=== PATIENT | female | born 1985 | race Caucasian/White ===

== ENCOUNTER 2018-10-10 13:57 | Emergency (ER) | payer OTHER ==
[2018-10-10 14:14] LABS: BILIRUBIN,URINE NEGATIVE (NEGATIVE); GLUCOSE, URINE (UA) NEGATIVE (NEGATIVE); KETONES,URINE (UA) 40 mg/dL (NEGATIVE); LEUKOCYTE ESTERASE, URINE NEGATIVE (NEGATIVE); NITRITE,URINE NEGATIVE (NEGATIVE); OCCULT BLOOD,URINE TRACE-LYSE (NEGATIVE); PROTEIN,URINE NEGATIVE (NEGATIVE); UROBILINOGEN,URINE 0.2 (NORMAL) E.U./dL (NORMAL)
[2018-10-10] MEDS ORDERED: diphenhydrAMINE INJ 50 MG/ML VIAL IVP STA (14:15)
[2018-10-10] MEDS ORDERED: PROCHLORPERAZINE 10 MG/2 ML VIAL IVP STA (14:15)
[2018-10-10] MEDS ORDERED: SODIUM CHLORIDE 0.9% 1,000 ML IV ONE (14:15)
[2018-10-10] MEDS ORDERED: KETOROLAC 30 MG/ML VIAL IVP STA (14:16)
[2018-10-10] MEDS ORDERED: DEXAMETHASONE 10 MG/ML VIAL IVP STA (14:16)
[2018-10-10 14:17] LABS: CLARITY,URINE HAZY (CLEAR); HCG UR QUAL NEGATIVE
--- NOTE | 2018-10-10 14:18 | ED Physician Documentation ---
PD HPI HEADACHE - Stated complaint Stated Complaint: MIGRAINE - Chief complaint Chief Complaint: Neuro - History obtained from History obtained from: Patient - History of Present Illness Timing - onset: How many days ago (3) Timing - onset during: Rest Timing - duration: Days (3) Timing - details: Gradual onset, Still present Location: Front Quality: Throbbing Associated symptoms: Nausea, Vomiting. No: Fever, Stiff neck, Weakness, Numbness, Syncope, Seizure, Eye pain, Vision changes Improved by: Rest, Dark room, Quiet Worsened by: Light, Noise, Moving Contributing factors: No: Anticoagulated, Possible carbon monoxide Similar symptoms before: Diagnosis (migraine) Recently seen: Not recently seen - Additional information Additional information: 33-year-old female with a previous history of migraine headache has developed a headache 3 days ago after seeing some flashing lights in the periphery of her vision. She states that she has not had a headache like this for about 2 years. She has been unable to get the headache to go away despite staying in her room and having her care for the children. Review of Systems Constitutional: denies: Fever Eyes: denies: Decreased vision Ears: denies: Ear pain Nose: denies: Rhinorrhea / runny nose, Congestion Throat: denies: Sore throat Cardiac: denies: Chest pain / pressure Respiratory: reports: Cough. denies: Dyspnea GI: reports: Nausea, Vomiting. denies: Abdominal Pain : denies: Dysuria, Frequency Skin: denies: Rash Musculoskeletal: denies: Neck pain, Back pain, Extremity pain Neurologic: reports: Headache. 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 : None HEENT: None Psych: Depression, Eating disorder Musculoskeletal: None Derm: None - Past Surgical History Past Surgical History: Yes General: EGD - Present Medications Home Medications: Ambulatory Orders Medication Instructions Recorded Confirmed Albuterol Sulfate [Albuterol 8.5 gm IH 10/10/18 Sulfate Hfa] - Allergies Allergies/Adverse Reactions: Allergies Allergy/AdvReac Type Severity Reaction Status Date / Time amoxicillin trihydrate * AdvReac Unknown Verified 10/10/18 14:02 [From Augmentin] potassium clavulanate * AdvReac Unknown Verified 10/10/18 14:02 [From Augmentin] Sulfa (Sulfonamide AdvReac Unknown Verified 10/10/18 14:02 Antibiotics) - Social History Does the pt smoke?: No Smoking Status: Never smoker Does the pt drink ETOH?: Yes Does the pt have substance abuse?: No - Immunizations Immunizations are current?: Yes - POLST Patient has POLST: No PD ED PE NORMAL - Vitals Vital signs reviewed: Yes - General General: Alert and oriented X 3, Well developed/nourished, Other (appears to be in pain with assistant public defender tone and flat affect. 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, No motor deficit, No sensory deficit, Normal speech Eye Opening: Spontaneous Motor: Obeys Commands Verbal: Oriented GCS Score: 15 - Psych Psych: Normal mood, Normal affect Results - Vitals Vitals: Vital Signs - 24 hr 10/10/18 10/10/18 14:00 14:37 Temperature 36.5 C Heart Rate 85 Respiratory 16 18 Rate Blood Pressure 142/81 H O2 Saturation 100 Oxygen O2 Source Room air - Labs Labs: Laboratory Tests 10/10/18 14:05 Urine Color YELLOW Urine Clarity HAZY Urine pH 5.0 Ur Specific [place] >=1.030 H Urine Protein NEGATIVE Urine Glucose (UA) NEGATIVE Urine Ketones 40 H Urine Occult Blood TRACE-LYSE Urine Nitrite NEGATIVE Urine Bilirubin NEGATIVE Urine Urobilinogen 0.2 (NORMAL) Ur Leukocyte Esterase NEGATIVE Urine RBC 0-5 Urine WBC 0-3 Ur Squamous Epith Cells MOD Squamous H Urine Bacteria Few Ur Microscopic Review INDICATED Urine Culture Comments NOT INDICATED Urine HCG, Qual NEGATIVE PD MEDICAL DECISION MAKING - ED course Complexity details: reviewed old records, considered differential, d/w patient ED course: 33-year-old female with a migraine headache with aura has had a headache for 3 days. She is administered a cocktail consisting of dexamethasone, Compazine, Benadryl, Toradol and saline. Departure - Departure Disposition: 01 Home, Self Care Clinical Impression: Migraine Qualifiers: Migraine type: with aura Status migrainosus presence: without status migrainosus Intractability: not intractable Qualified Code(s): G43.109 - Migraine with aura, not intractable, without status migrainosus Condition: Stable Instructions: ED Headache Migraine Follow-Up: ALICE COFFEY [Primary Care Provider] -
[2018-10-10 14:22] LABS: BACTERIA,URINE Few /HPF (None Seen); RBC,URINE 0-5 /HPF (0-5); SQUAMOUS EPITHELIAL CELL,UR MOD Squamous (<= Few)
[2018-10-10 15:43] VITALS: BP 122/78
== END 2018-10-10 15:42 | disposition home or self-care (01) ==
LOC: ED 13:57
DX: G43.109 Migraine with aura, not intractable, without status migrainosus (principal)
CPT/HCPCS: 81001; 81025; 96361; 96374; 99283; J1200; 81003; 87086

== ENCOUNTER 2019-06-11 10:49 | Outpatient (CLI) | payer OTHER ==
--- NOTE | 2019-06-11 12:15 | SLEEP CARE CONSULTATION ---
Information from patient questionnaire entered by Evonne Rodriguez. I have reviewed and concur with the information entered by Evonne Rodriguez. This document represents the service I personally performed and the decisions made by me, Riki Gonzalez MD, [facility]. History of Present Illness Reason for Visit: New patient Chief Complaint: reports: Insomnia, Other (possible sleep apnea) Usual bedtime: 1185-2218 Time it takes to fall asleep: a while Observed to quit breathing while asleep: Yes Sleeps alone due to snoring: No Number of times waking at night: 1-2 Reasons for waking at night: reports: Snoring, Bathroom Toss, Turn, or Twitch while sleeping: Yes Recalls having dreams: Yes (sometimes) Usually gets out of bed at: 0730 Feels refreshed in the morning: No Morning headache: Yes Sleepy or fatigued during the day: Yes Ever fallen asleep while driving: No Takes day naps: Yes Prior sleep studies: No Additional HPI information: I had the pleasure of seeing Ms. Padron today regarding the possibility of her having a sleep disorder. As you know, she is a 33 year old lady who complains of loud snore and excessive daytime sleepiness. Her mother was recently put on a CPAP. The patient tells me that she normally goes to bed around 9 pm - midnight, and it takes her a while to fall asleep. She has been told that she snores loudly and irregularly at night. She has also been observed to stop breathing in her sleep. Her spouse can still sleep in the same bed. She can recall waking up on the average of 1 - 2 times during the night. Most of the time she wakes up because of coughing. She has never awakened because of her own snoring, choking, and having to gasp for air. There is a lot of tossing and turning in her sleep. She has somniloquy (sleep talking) but not somnambulism (sleep walking). Generally she can recall having dreams. In the morning she usually gets up out of the bed around 7:30 a.m. not feeling refreshed nor rested. She usually has a morning headache that lasts less than an hour. During the day she complains of feeling sleepy and fatigued. Her score on [place] Sleepiness Scale is 7 out of 24. She has never fallen asleep while driving nor has had any accident due to sleepiness. She usually takes naps during the day. Upon falling asleep during the day she denies having vivid dreams. She has never had sleep paralysis, experienced cataplexy or symptoms of restless leg syndrome. She denies having impaired concentration during the day. Subjective Initial [place] Sleepiness Scale score: 7 Past Medical History Past Medical History: reports: Asthma, Depression (off meds) Social History The patient's occupation is not employed. Patient is and lives in [place]. Have you smoked in the past 12 months: No Alcohol use: Yes Alcohol amount and frequency: 1 per month Caffeine use: Yes Caffeine amount and frequency: every day, at least 1 Family History Family history of sleep disordered breathing: Yes Family Hx Sleep Apnea: Mother: Snoring, Sleep apnea - Treated Allergies and Home Medications Drug allergies reviewed: Yes Home medication list reviewed: Yes Allergy and home medication list: Medications: zyrtec, Wellbutrin, , Proair Review of Systems Cardiovascular: denies: high blood pressure, palpitations, chest pain, irregular heart rate or pulse, leg or foot swelling, have to sleep sitting up, other Respiratory: reports: shortness of breath, wheeze Gastrointestinal: reports: heartburn, nausea Urinary: denies: incontinence, frequency, urgency, impotence, other Neurological: denies: headaches, seizure, head trauma, disorientation, speech dysfunction, gait or balance problems, fainting or unconsciousness, other Psychiatric: reports: anxiety, depression Ear/Nose/Throat: reports: nasal congestion Endocrine: denies: thyroid disease, history of goiter, sluggishness, too hot or cold, excessive thirst, increased appetite, increased urination, unexplained weakness, other Musculoskeletal: denies: joint pain, neck pain, back pain, joint swelling, muscle pain or cramping, mobility problems, other Immunologic: reports: allergies to food or environment Physical Exam Vital signs obtained and entered by: Dr. Gonzalez Blood Pressure: 129/86 Heart Rate: 85 O2 Saturation: 98 Height: 5 ft 6 in Weight: 216 lb Body Mass Index: 34.8 BMI Classification: Obesity Class 1 Neck circumference: 15 Mood/affect: normal HEENT: No craniofacial malformation Nostrils: patent to airflow Turbinates: normal Septum: midline Mouth and throat: narrow oropharynx Soft palate: long Hard palate: normal Uvula: normal Uvula visualization: 50% Mallampati Class II Tongue: normal in size Tonsils: small Chin and jaw: normal size and position Neck: normal w/o lymphadenopathy or thyromegaly Heart: regular rate and rhythm Lungs: wheeze Abdomen: soft, non-tender Extremities: no edema or clubbing Neurologic: intact, no focal deficits Impression and Plan IMPRESSION: 1. Obstructive Sleep Apnea-Hypopnea Syndrome, as suggested by history of loud and irregular snoring, observed cessation of breath while asleep, frequent awakenings during the night, unrefreshed sleep, and daytime hypersomnolence. Narrow oropharynx and obesity are common predisposing factors for obstructive sleep apnea-hypopnea syndrome. Pathophysiology of sleep-disordered breathing was discussed. I recommend proceeding to polysomnography to confirm the diagnosis and to assess severity. If she has significant sleep disordered breathing, a manual CPAP titration study will also be performed to find the optimal treatment pressure. I informed the patient of what the sleep studies involve and after some discussion, she agreed to proceed. Plan: 1. Schedule polysomnography + manual CPAP titration study and return in 1 to 2 weeks after the study to discuss result and initiate therapy. 2. Avoid long distance driving or when feeling sleepy. 3. Avoid alcohol, sedative and muscle relaxant around bedtime. 4. Attempt to lose weight. I spent 100% of this 20 minute visit face to face with the patient with greater than 50% of this was spent time counseling the patient and coordination of care.
[2019-06-11 12:16] VITALS: BP 129/86
== END 2019-06-11 10:50 | disposition home or self-care (01) ==
LOC: SC 10:49
PROVIDERS: ATTEND Internal Medicine Pulmonary Disease
DX: R06.83 Snoring (principal); R06.81 Apnea, not elsewhere classified; G47.8 Other sleep disorders; G47.10 Hypersomnia, unspecified; E66.9 Obesity, unspecified; Z68.34 Body mass index [BMI] 34.0-34.9, adult
CPT/HCPCS: 99203; 99212

== ENCOUNTER 2019-09-07 16:41 | Emergency (ER) | payer OTHER ==
[2019-09-07 17:14] LABS: BILIRUBIN,URINE NEGATIVE (NEGATIVE); GLUCOSE, URINE (UA) NEGATIVE (NEGATIVE); KETONES,URINE (UA) NEGATIVE (NEGATIVE); LEUKOCYTE ESTERASE, URINE NEGATIVE (NEGATIVE); NITRITE,URINE NEGATIVE (NEGATIVE); OCCULT BLOOD,URINE NEGATIVE (NEGATIVE); PH,URINE 5.5 PH (5.0-7.5); PROTEIN,URINE NEGATIVE (NEGATIVE); UROBILINOGEN,URINE 0.2 (NORMAL) E.U./dL (NORMAL)
[2019-09-07 17:19] LABS: CLARITY,URINE CLEAR (CLEAR)
[2019-09-07 17:27] LABS: BASOPHILS % (AUTO) 0.5 %; EOSINOPHILS # (AUTO) 0.3 10^3/uL (0.0-0.7); EOSINOPHILS % (AUTO) 4.4 %; HGB - HEMOGLOBIN 11.3 g/dL (12.0-16.0); LYMPHOCYTES # (AUTO) 1.5 10^3/uL (1.5-3.5); LYMPHOCYTES % (AUTO) 23.1 %; MEAN CORPUSCULAR HEMOGLOBIN 26.8 pg (27.0-31.0); MEAN CORPUSCULAR HGB CONC 32.6 g/dL (32.0-36.0); MEAN CORPUSCULAR VOLUME 82.2 fL (81.0-99.0); MEAN PLATELET VOLUME 11.5 fL (7.9-10.8); MONOCYTES # (AUTO) 0.3 10^3/uL (0.0-1.0); MONOCYTES % (AUTO) 4.3 %; NEUTROPHILS # (AUTO) 4.3 10^3/uL (1.5-6.6); NEUTROPHILS % (AUTO) 67.4 %; PLT - PLATELET COUNT 200 10^3/uL (130-450); RED BLOOD COUNT 4.22 10^6/uL (4.20-5.40); RED CELL DISTRIBUTION WIDTH 14.6 % (12.0-15.0); WHITE BLOOD COUNT 6.3 x10^3/uL (4.8-10.8)
[2019-09-07 17:40] LABS: ALBUMIN 3.3 g/dL (3.2-5.5); ALBUMIN/GLOBULIN RATIO 0.9 (1.0-2.2); BILIRUBIN,TOTAL 0.4 mg/dL (0.2-1.0); CALCIUM 8.9 mg/dL (8.5-10.3); CREATININE 0.6 mg/dL (0.4-1.0); TOTAL PROTEIN 6.8 g/dL (6.7-8.2)
--- NOTE | 2019-09-07 17:54 | ED Physician Documentation ---
PD HPI FEMALE - Stated complaint Stated Complaint: SPOTTING/VAGINAL PX - Chief complaint Chief Complaint: Abd Pain - History obtained from History obtained from: Patient, Family - History of Present Illness Timing - onset: Yesterday Timing - duration: Days (2) Timing - details: Gradual onset Pain level max: 2 Pain level max: 1 Associated symptoms: Pelvic pain, Vaginal pain, Vaginal bleeding (spotting for 2 days). 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 History: G (5), P (2) Recently seen: Emergency Dept ([facility] 6 weeks ago and dx with a perigestational bleed.) Review of Systems Constitutional: denies: Fever, Chills Ears: denies: Ear pain Nose: denies: Rhinorrhea / runny nose, Congestion Throat: denies: Sore throat Respiratory: denies: Cough, Wheezing GI: denies: Abdominal Pain, Vomiting, Diarrhea : denies: Dysuria Skin: denies: Rash Musculoskeletal: denies: Neck pain, Back pain Neurologic: denies: Headache PD PAST MEDICAL HISTORY - Past Medical History Past Medical History: Yes Cardiovascular: None Respiratory: None Neuro: None Endocrine/Autoimmune: None GI: GERD 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 : None HEENT: None Psych: Depression, Eating disorder Musculoskeletal: None Derm: None - Past Surgical History Past Surgical History: Yes General: EGD - Present Medications Home Medications: Ambulatory Orders Medication Instructions Recorded Confirmed Albuterol Sulfate [Albuterol 8.5 gm IH 10/10/18 Sulfate Hfa] Chlorhexidine Gluconate [Peridex] 10 ml MM TID #118 ml 10/13/18 Clindamycin HCl [Clindamycin 300MG 300 mg PO Q6H #28 capsule 10/13/18 CAP] Naproxen 500 mg PO BID #20 tablet 10/13/18 Oxycodone HCl/Acetaminophen 1 each PO Q4H PRN #20 tablet 10/13/18 [Percocet 7.5-325 mg Tablet] - Allergies Allergies/Adverse Reactions: Allergies Allergy/AdvReac Type Severity Reaction Status Date / Time amoxicillin trihydrate * AdvReac Unknown Verified 09/07/19 16:45 [From Augmentin] potassium clavulanate * AdvReac Unknown Verified 09/07/19 16:45 [From Augmentin] Sulfa (Sulfonamide AdvReac Unknown Verified 09/07/19 16:45 Antibiotics) - Social History Does the pt smoke?: No Smoking Status: Never smoker Does the pt drink ETOH?: Yes Does the pt have substance abuse?: No - Immunizations Immunizations are current?: Yes - POLST Patient has POLST: No PD ED PE NORMAL - Vitals Vital signs reviewed: Yes - General General: Alert and oriented X 3, No acute distress, Well developed/nourished - HEENT HEENT: Moist mucous membranes - Neck Neck: Supple, no meningeal sign - Cardiac Cardiac: RRR, Strong equal pulses - Respiratory Respiratory: No respiratory distress, Clear bilaterally - Abdomen Abdomen: Soft, Non tender, Non distended - Female Female : Pt declined - Back Back: No CVA TTP, No spinal TTP - Derm Derm: Warm and dry - Extremities Extremities: No edema - Neuro Neuro: Alert and oriented X 3 - Psych Psych: Normal mood, Normal affect Results - Vitals Vitals: Vital Signs - 24 hr 09/07/19 09/07/19 16:45 19:53 Temperature 36.9 C 36.8 C Heart Rate 96 75 Respiratory 18 18 Rate Blood Pressure 125/66 120/83 H O2 Saturation 100 99 Oxygen O2 Source Room air - Labs Labs: Laboratory Tests 09/07/19 09/07/19 09/07/19 17:00 17:15 17:20 WBC 6.3 RBC 4.22 Hgb 11.3 L Hct 34.7 L MCV 82.2 MCH 26.8 L MCHC 32.6 RDW 14.6 Plt Count 200 MPV 11.5 H Neut # (Auto) 4.3 Lymph # (Auto) 1.5 [place] # (Auto) 0.3 Eos # (Auto) 0.3 Baso # (Auto) 0.0 Absolute Nucleated RBC 0.00 Nucleated RBC % 0.0 Sodium Potassium Chloride Carbon Dioxide Anion Gap BUN Creatinine Estimated GFR (MDRD) Glucose Calcium Total Bilirubin AST ALT Alkaline Phosphatase Total Protein Albumin Globulin Albumin/Globulin Ratio Lipase HCG, Quant Urine Color YELLOW Urine Clarity CLEAR Urine pH 5.5 Ur Specific [place] >=1.030 H Urine Protein NEGATIVE Urine Glucose (UA) NEGATIVE Urine Ketones NEGATIVE Urine Occult Blood NEGATIVE Urine Nitrite NEGATIVE Urine Bilirubin NEGATIVE Urine Urobilinogen 0.2 (NORMAL) Ur Leukocyte Esterase NEGATIVE Ur Microscopic Review NOT INDICATED Urine Culture Comments NOT INDICATED Blood Type O POSITIVE 09/07/19 09/07/19 17:20 17:20 WBC RBC Hgb Hct MCV MCH MCHC RDW Plt Count MPV Neut # (Auto) Lymph # (Auto) [place] # (Auto) Eos # (Auto) Baso # (Auto) Absolute Nucleated RBC Nucleated RBC % Sodium 137 Potassium 3.4 L Chloride 104 Carbon Dioxide 26 Anion Gap 7.0 BUN 13 Creatinine 0.6 Estimated GFR (MDRD) 114 Glucose 95 Calcium 8.9 Total Bilirubin 0.4 AST 14 ALT 11 Alkaline Phosphatase 48 Total Protein 6.8 Albumin 3.3 Globulin 3.5 Albumin/Globulin Ratio 0.9 L Lipase 26 HCG, Quant 40212.00 Urine Color Urine Clarity Urine pH Ur Specific [place] Urine Protein Urine Glucose (UA) Urine Ketones Urine Occult Blood Urine Nitrite Urine Bilirubin Urine Urobilinogen Ur Leukocyte Esterase Ur Microscopic Review Urine Culture Comments Blood Type - Rads (name of study) OB US Radiology: Prelim report reviewed, EMP read contemporaneously, See rad report (1. García live intrauterine with gestational age 15 weeks 2 days based on established DENISHA. 2. Normal amniotic fluid volume. Low lying posterior placenta without placenta previa. ) PD MEDICAL DECISION MAKING - ED course Complexity details: reviewed results, re-evaluated patient, considered differential, d/w patient, d/w family ED course: 34-year-old female, 16 weeks with vaginal spotting. No acute findings on laboratory testing or ultrasound. We will have her follow-up with her doctor for further care. Patient counseled regarding signs and symptoms for which I believe and urgent re-evaluation would be necessary. Patient with good unde rstanding of and agreement to plan and is comfortable going home at this time This document was made in part using voice recognition software. While efforts are made to proofread this document, sound alike and grammatical errors may occur. Departure - Departure Disposition: 01 Home, Self Care Clinical Impression: Vaginal bleeding during Condition: Good Instructions: ED Miscarriage Poss, ED Preg Established Normal Sxs Follow-Up: your,doctor in 1 week [Other] Comments: Return if you worsen. Follow up with your doctor in 2-3 days for recheck. Your blood work and ultrasound do not show any acute abnormalities tonight. IMPRESSION: 1. García live intrauterine with gestational age 15 weeks 2 days based on established DENISHA. 2. Normal amniotic fluid volume. Low lying posterior placenta without placenta previa. Discharge Date/Time: 09/07/19 20:29
[2019-09-07 19:54] VITALS: BP 120/83
--- NOTE | 2019-09-07 20:01 | Ultrasound Report ---
Reason: 16 weeks preg, vag bleed Procedure Date: 09/07/2019 Accession Number: [id number] / [id number] Procedure: US - OB 14+ Weeks CPT Code: Final Report FULL RESULT: EXAM: LIMITED OBSTETRICAL ULTRASOUND EXAM DATE: 09/07/2019 07:25 PM. CLINICAL HISTORY: 16 weeks preg, vag bleed. COMPARISON: None. TECHNIQUE: Real-time sonographic evaluation of the fetus performed by the copy worker. Multiple sales representative uniforms static images were saved for review. DATING: Established EGA 15 weeks 2 days with DENISHA 02/27/2020. GENERAL EVALUATION García . Cardiac activity: 155 bpm. movement: Visualized. Presentation: Breech Placenta: Posterior position. No previa. Placenta is low lying located 1.9 cm from the internal loss. No focal placental abnormality visualized. Amniotic fluid: Normal. CHENCHO 15.3 cm. MVP 4.6 cm. MATERNAL STRUCTURES Cervix appears closed and measures 6.2 cm in length. IMPRESSION: 1. García live intrauterine with gestational age 15 weeks 2 days based on established DENISHA. 2. Normal and manic fluid volume. Low lying posterior placenta without placenta previa. RADIA
== END 2019-09-07 20:29 | disposition home or self-care (01) ==
LOC: ED 16:41
DX: O20.9 Hemorrhage in early pregnancy, unspecified (principal); O44.42 Low lying placenta NOS or without hemorrhage, second trimester; Z3A.15 15 weeks gestation of pregnancy
CPT/HCPCS: 36415; 76805; 80053; 81001; 81003; 83690; 84702; 85025; 86900; 86901; 87086; 99284

== ENCOUNTER 2020-03-07 13:41 | Emergency (ER) | payer OTHER ==
[2020-03-07 14:01] VITALS: BP 128/76
[2020-03-07] MEDS ORDERED: cephALEXin 250 MG CAPSULE PO STA (14:13)
--- NOTE | 2020-03-07 14:16 | ED Physician Documentation ---
History of Present Illness - Stated complaint Stated Complaint: FACE SWELLING - Chief complaint Chief Complaint: Heent - History obtained from History obtained from: Patient - History of Present Illness Timing: How many days ago (3) Pain level max: 7 Pain level now: 6 - Additonal information Additional information: 34-year-old female presents the emergency department the right-sided dental pain. She states that it began hurting worse over the past few days and worsened again today. Has a history of multiple dental abscesses in the past. With multiple dental extractions. No fevers. She is breast-feeding. She is allergic to amoxicillin, but states her allergy is diarrhea and she thinks she had a rash. No difficulty breathing. Worse with eating and drinking. Nothing makes it better. Review of Systems Ten Systems: 10 systems reviewed and negative Constitutional: denies: Fever, Chills GI: denies: Nausea, Vomiting, Diarrhea Skin: denies: Rash Musculoskeletal: denies: Neck pain, Back pain Neurologic: denies: Headache PD PAST MEDICAL HISTORY - Past Medical History Past Medical History: Yes Cardiovascular: None Respiratory: None Neuro: None Endocrine/Autoimmune: None GI: GERD MRI TECH: None : None HEENT: None Psych: Depression, Eating disorder Musculoskeletal: None Derm: None - Past Surgical History Past Surgical History: Yes General: EGD - Present Medications Home Medications: Ambulatory Orders Medication Instructions Recorded Confirmed Albuterol Sulfate [Albuterol 8.5 gm IH Q4HR PRN 10/10/18 03/07/20 Sulfate Hfa] Cephalexin [Keflex] 500 mg PO Q6H #40 capsule 03/07/20 Docusate Sodium 250Mg Capsule 1 cap ORAL BID PRN 03/07/20 03/07/20 [Colace 250Mg Capsule] Ibuprofen 800 mg PO Q8HR PRN 03/07/20 03/07/20 Omeprazole 20 mg PO DAILY 03/07/20 03/07/20 No122/Iron/Folic Acid 1 each PO DAILY 03/07/20 03/07/20 [ Multi Tablet] - Allergies Allergies/Adverse Reactions: Allergies Allergy/AdvReac Type Severity Reaction Status Date / Time amoxicillin trihydrate * AdvReac Unknown Verified 03/07/20 13:57 [From Augmentin] potassium clavulanate * AdvReac Unknown Verified 03/07/20 13:57 [From Augmentin] Sulfa (Sulfonamide AdvReac Unknown Verified 03/07/20 13:57 Antibiotics) - Social History Does the pt smoke?: No Smoking Status: Never smoker Does the pt drink ETOH?: Yes Does the pt have substance abuse?: No - Immunizations Immunizations are current?: Yes - POLST Patient has POLST: No PD ED PE NORMAL - Vitals Vital signs reviewed: Yes - General General: Alert and oriented X 3, No acute distress, Well developed/nourished - HEENT HEENT: Moist mucous membranes, Other (Poor dentition throughout, there is tenderness over the right lower molar. No gingival swelling. No drainage. Normal phonation. No trismus. No swelling under the tongue) - Neck Neck: Supple, no meningeal sign - Cardiac Cardiac: RRR, Strong equal pulses - Respiratory Respiratory: No respiratory distress, Clear bilaterally - Derm Derm: Warm and dry - Neuro Neuro: Alert and oriented X 3 - Psych Psych: Normal mood, Normal affect Results - Vitals Vitals: Vital Signs - 24 hr 03/07/20 13:58 Temperature 36.6 C Heart Rate 62 Respiratory 18 Rate Blood Pressure 128/76 O2 Saturation 98 Oxygen O2 Source Room air PD MEDICAL DECISION MAKING - ED course Complexity details: considered differential, d/w patient ED course: Patient with dental caries and dental pain. No abscess. No Ludewig's angina. We will place her on Keflex given her allergy to amoxicillin as diarrhea and a rash. She believes that she has had Keflex in the past without a problem. She is breast-feeding. Patient counseled regarding signs and symptoms for which I believe and urgent re-evaluation would be necessary. Patient with good und erstanding of and agreement to plan and is comfortable going home at this time This document was made in part using voice recognition software. While efforts are made to proofread this document, sound alike and grammatical errors may occur. She states she will contact her doctor on Monday Departure - Departure Disposition: Home, Self Care Clinical Impression: Pain due to dental caries Condition: Good Instructions: ED Tooth Pain Follow-Up: your,dentist on Monday [Other] Prescriptions: Cephalexin [Keflex] 500 mg PO Q6H #40 capsule Comments: Take all antibiotics until gone. Return if you worsen. Follow-up with your dentist on Monday for repeat evaluation.
== END 2020-03-07 14:29 | disposition home or self-care (01) ==
LOC: ED 13:41
DX: K02.9 Dental caries, unspecified (principal); Z88.0 Allergy status to penicillin; Z88.2 Allergy status to sulfonamides
CPT/HCPCS: 99282; 99284; A9270

== ENCOUNTER 2020-03-08 08:33 | Emergency (ER) | payer OTHER ==
--- NOTE | 2020-03-08 08:59 | ED Physician Documentation ---
PD HPI HEENT - Stated complaint Stated Complaint: FACE SWELLING - Chief complaint Chief Complaint: Heent - History obtained from History obtained from: Patient - History of Present Illness Timing - onset: How many days ago (2-3) Timing - duration: Days (few) Timing - details: Abrupt onset, Still present (worse since yesterday) Location: Tooth (dental pain and swelling around gum, with increased swelling since yesterday despite oral Keflex.), Mouth Worsens: Swalllowing, Other (palpation) Associated symptoms: Facial swelling (more today). No: Fever, Congestion Recently seen: Emergency Dept (yesterday and Rx for Keflex.) Review of Systems Constitutional: reports: Myalgias. denies: Fever, Chills Nose: denies: Rhinorrhea / runny nose, Congestion Throat: reports: Dental pain / toothache. 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 : None HEENT: None Psych: Depression, Eating disorder Musculoskeletal: None Derm: None Other Past Medical History: Post- x 2 weeks, breast-feeding - Past Surgical History Past Surgical History: Yes General: EGD /APIGEE DEVELOPER: section - Present Medications Home Medications: Ambulatory Orders Medication Instructions Recorded Confirmed Albuterol Sulfate [Albuterol 8.5 gm IH Q4HR PRN 10/10/18 03/07/20 Sulfate Hfa] Cephalexin [Keflex] 500 mg PO Q6H #40 capsule 03/07/20 Docusate Sodium 250Mg Capsule 1 cap ORAL BID PRN 03/07/20 03/07/20 [Colace 250Mg Capsule] Ibuprofen 800 mg PO Q8HR PRN 03/07/20 03/07/20 Omeprazole 20 mg PO DAILY 03/07/20 03/07/20 No122/Iron/Folic Acid 1 each PO DAILY 03/07/20 03/07/20 [ Multi Tablet] Chlorhexidine Gluconate [Peridex] 15 ml MM TID #118 ml 03/08/20 Clindamycin HCl [Clindamycin 300MG 300 mg PO TID #20 capsule 03/08/20 CAP] Oxycodone HCl/Acetaminophen 1 - 2 each PO Q6H PRN #18 tablet 03/08/20 [Percocet 5-325 mg Tablet] - Allergies Allergies/Adverse Reactions: Allergies Allergy/AdvReac Type Severity Reaction Status Date / Time amoxicillin trihydrate * AdvReac Unknown Verified 03/08/20 08:47 [From Augmentin] potassium clavulanate * AdvReac Unknown Verified 03/08/20 08:47 [From Augmentin] Sulfa (Sulfonamide AdvReac Unknown Verified 03/08/20 08:47 Antibiotics) - Social History Does the pt smoke?: No Smoking Status: Never smoker Does the pt drink ETOH?: Yes Does the pt have substance abuse?: No - Immunizations Immunizations are current?: Yes - POLST Patient has POLST: No PD ED PE NORMAL - Vitals Vital signs reviewed: Yes - General General: Alert and oriented X 3, No acute distress, Well developed/nourished - HEENT HEENT: Pharynx benign, Other (right mandible swelling without fluctuance. Gum swelling. Dental caries with tenderness right lower. ) - Neck Neck: Supple, no meningeal sign, No adenopathy - Cardiac Cardiac: RRR, No murmur - Respiratory Respiratory: Clear bilaterally - Neuro Neuro: Alert and oriented X 3, No motor deficit, Normal speech Results - Vitals Vitals: Vital Signs - 24 hr 03/08/20 03/08/20 08:39 10:00 Temperature 37.4 C 36.9 C Heart Rate 96 92 Respiratory 16 16 Rate Blood Pressure 123/92 H 136/84 H O2 Saturation 100 98 Oxygen O2 Source Room air PD MEDICAL DECISION MAKING - ED course Complexity details: considered differential (focal swelling right mandible and gum. Bedside U/S used to eval and soft tissue swelling noted without focal abscess in cheek. Small fluid along gingiva. Did not look large enough for I&D.), d/w patient Departure - Departure Disposition: 01 Home, Self Care Clinical Impression: Dental abscess Condition: Stable Record reviewed to determine appropriate education?: Yes Prescriptions: Clindamycin HCl [Clindamycin 300MG CAP] 300 mg PO TID #20 capsule Oxycodone HCl/Acetaminophen [Percocet 5-325 mg Tablet] 1 - 2 each PO Q6H PRN #18 tablet PRN Reason: pain Chlorhexidine Gluconate [Peridex] 15 ml MM TID #118 ml Comments: Continue the cephalexin. 2 would add clindamycin to broaden the antibiotic coverage. Add chlorhexidine oral mouth rinse twice daily for the next several days to week as well. Anti-inflammatories such as ibuprofen or naproxen 2-3 times daily. To that add Tylenol or oxycodone as needed for pain. Follow-up/contact with a dentist over the next few days as planned. Discharge Date/Time: 03/08/20 10:02
[2020-03-08] MEDS ORDERED: CLINDAMYCIN 150 MG CAPSULE PO STA (09:20)
[2020-03-08] MEDS ORDERED: ACETAMINOPHEN 325 MG TABLET PO STA (09:21)
[2020-03-08] MEDS ORDERED: KETOROLAC 30 MG/ML VIAL IM STA (09:21)
[2020-03-08 10:02] VITALS: BP 136/84
== END 2020-03-08 10:02 | disposition home or self-care (01) ==
LOC: ED 08:33
DX: K04.7 Periapical abscess without sinus (principal); K02.9 Dental caries, unspecified
CPT/HCPCS: 99283; 99284; A9270